=== PATIENT | female | born 1970 | race Caucasian/White ===

== ENCOUNTER 2018-07-29 10:47 | Day surgery (SDC) | payer OTHER ==
[~2018-07-29] VITALS: Ht 162.6 cm; Wt 77.1 kg
--- NOTE | ~2018-07-29 | OR ---
[facility] [address], [place] [address] Draft DATE OF OPERATION: 07/29/2018 SURGEON: Ama Partida MD PREOPERATIVE DIAGNOSES: 1. Diarrhea. 2. Iron-deficiency anemia. POSTOPERATIVE DIAGNOSES: 1. Mild antral gastritis with gastric polyps. 2. Normal-appearing colon, a small hyperplastic polyp of sigmoid. PROCEDURES: 1. Esophagogastroduodenoscopy with biopsy. 2. Total colonoscopy to cecum with cold morcellation polypectomy x1 and biopsy of cecum and terminal ileum. ANESTHESIA: Intravenous sedation, fentanyl 150 mcg, Versed 5 mg total. INDICATION: This 48-year-old white woman is a patient of JANETH Treviño and has had complaints of diarrhea, though benefitted somewhat from Questran, but also concurrent iron deficiency anemia. Her last upper endoscopy was in 2010. At that time showed no Mcneal's epithelium or H pylori or ulceration. She is admitted at this time to undergo upper endoscopy and colonoscopy on the basis of her anemia. She understands the risks of bleeding, infection, and perforation, wished to proceed. FINDINGS: On upper endoscopy, she had a good flap valve. Esophagus appeared reasonably normal. There was mild antral gastritis and several gastric polyps probably benign. CLOtest was negative. On colonoscopy, the prep was good. Complete colonoscopy was undertaken of the cecum and intubation of the ileum was accomplished as well. There was a hyperplastic polyp of the sigmoid, but remaining colon was normal. Biopsies were taken of the ileum, cecum, and rectum as well to assess for occult colitis. DESCRIPTION OF PROCEDURE: The patient was brought to the endoscopy suite and placed in lateral decubitus position PATIENT NAME: PIA PEARSON OPERATIVE REPORT DATE OF : 74 REPORT #: [id number] PHYSICIAN: AMA PARTIDA MD PCP: HERNANDEZ [place] REPORT IS CONFIDENTIAL AND NOT TO BE RELEASED WITHOUT AUTHORIZATION [facility] [address], [place] [address] Draft after undergoing topical Hurricaine spray hypopharyngeal anesthesia. She was given intravenous sedation to the point of slurred speech and nystagmus. A bite block was placed. An Olympus video upper endoscope was passed in the hypopharynx. The vocal cords were visualized as normal. Scope was advanced to the esophagus and throughout its length, it appeared normal. The scope was advanced to the stomach was insufflated with air. Rugal folds were normal. Antrum had mild inflammatory change, but no sign of ulceration proper. The pylorus was normal. Scope was passed through into the duodenum. The duodenum appeared to be normal as well. The scope was withdrawn to the antrum. A biopsy was then taken of the antrum on the basis of mild gastritis. CLOtest biopsies were taken as well. Gastric polyps were noted of the stomach and these were excised. Not all were removed of course only promotional representative polyps excised. Retroflexed view showed a good flap valve. There was no sign of hiatal hernia or proximal gastric pathology. The scope was withdrawn to the distal esophagus, which may have had mild inflammatory change, but not much and certainly no Mcneal's epithelium, stricture neoplasm or ulceration. Biopsies were obtained there as well. The scope was then withdrawn removed and plans made for colonoscopy. The table was rotated and additional sedation given. Digital rectal examination was found to be normal. The Olympus video colonoscope was passed in the rectum and manipulated throughout the colon ultimately intubating the cecum itself. The ileocecal valve appeared normal. Scope was able to pass into without problem showing normal ileal mucosa. The scope was passed as far into the ileum as possible. There was no sign of neoplasm, ulceration, stricture, or other problem. Biopsies were obtained to assess for Crohn's nevertheless. Scope was withdrawn and biopsy was then taken of the cecum, although it appeared normal as well. The appendiceal orifice was normal. Scope was withdrawn from that point. Careful inspection throughout upon withdrawal of scope showed no sign of abnormality into the sigmoid where small hyperplastic polyp was noted, this was excised with cold morcellation technique. The scope was then removed. The patient was taken to recovery room in good condition. CONCLUDING DIAGNOSIS: Hyperplastic polyp of sigmoid, not accounting for diarrhea or anemia. Normal appearing ileum and colon. Otherwise, no sign of inflammatory disease. Upper endoscopy confirming mild antral gastritis and small polyps. PLAN: I have recommended Questran 4 g powder q.i.d. We will review her pathology report to assess for occult colitis and see her back in followup. PATIENT NAME: PIA PEARSON OPERATIVE REPORT DATE OF : 74 REPORT #: [id number] PHYSICIAN: AMA PARTIDA MD PCP: HERNANDEZ [place] REPORT IS CONFIDENTIAL AND NOT TO BE RELEASED WITHOUT AUTHORIZATION [address] [address] Draft MD KRISTIAN Paez/GREG /[id number] cc: JANETH Treviño Copies: HERNANDEZ [place] ~ PATIENT NAME: PIA PEARSON OPERATIVE REPORT DATE OF : 74 REPORT #: [id number] PHYSICIAN: AMA PARTIDA MD PCP: HERNANDEZ [place] REPORT IS CONFIDENTIAL AND NOT TO BE RELEASED WITHOUT AUTHORIZATION
[~2018-07-29 10:47] MED LIST: ACTIVATED CHARCOAL PO; CALCIUM500 M1 PO; IRON18 MG PO; LISINOPRIL-HCT1 EAC2 PO; QUESTRAN PACKET4 GM PO; TOPROL XL50 MG PO; VITAMIN B122500 MCG PO; VITAMIN D32400 UNIT/ MISC
--- NOTE | 2018-07-29 12:53 | NUR ---
07/29/18 Jj3 Mary Jo 3520-PATIENT ARRIVED TO PACU ON 3L NC WEANED TO 2L NC O2 SAT 100% PATIENT AWAKE DROWSY DENIES PAIN OR NAUSEA. ABDOMEN SOFT AND ROUND ENCOURAGED TO PASS FLATUS. IVF INFUSING. RR EVEN.
== END 2018-07-29 13:30 | disposition home or self-care (01) ==
LOC: DS 10:47 → OPS 10:47 → DS 12:00 → OPS 12:00
PROVIDERS: Surgery
PROC: 0DB68ZX Excision of Stomach, Via Natural or Artificial Opening Endoscopic, Diagnostic (ICD-10-PCS; 2018-07-29)
PROC: 0DB18ZX Excision of Upper Esophagus, Via Natural or Artificial Opening Endoscopic, Diagnostic (ICD-10-PCS; 2018-07-29)
PROC: 0DBH8ZZ Excision of Cecum, Via Natural or Artificial Opening Endoscopic (ICD-10-PCS; 2018-07-29)
PROC: 0DBE8ZZ Excision of Large Intestine, Via Natural or Artificial Opening Endoscopic (ICD-10-PCS; 2018-07-29)
PROC: 0DBP8ZZ Excision of Rectum, Via Natural or Artificial Opening Endoscopic (ICD-10-PCS; 2018-07-29)
PROC: 0DBB8ZZ Excision of Ileum, Via Natural or Artificial Opening Endoscopic (ICD-10-PCS; 2018-07-29)
PROC: 0DB98ZX Excision of Duodenum, Via Natural or Artificial Opening Endoscopic, Diagnostic (ICD-10-PCS; principal; 2018-07-29 12:00)
PROC: 0DB78ZX Excision of Stomach, Pylorus, Via Natural or Artificial Opening Endoscopic, Diagnostic (ICD-10-PCS; 2018-07-29 12:00)
DX: K63.5 Polyp of colon (principal); K31.9 Disease of stomach and duodenum, unspecified; K21.0 Gastro-esophageal reflux disease with esophagitis; K31.7 Polyp of stomach and duodenum; K29.70 Gastritis, unspecified, without bleeding; D50.9 Iron deficiency anemia, unspecified; I10 Essential (primary) hypertension; K52.9 Noninfective gastroenteritis and colitis, unspecified; Z98.890 Other specified postprocedural states
CPT/HCPCS: 99153; G0500; J2250; J3010; J7120

== ENCOUNTER 2022-06-04 11:47 | Day surgery (SDC) | payer OTHER ==
[~2022-06-04] VITALS: Ht 162.6 cm; Wt 82.0 kg
--- NOTE | 2022-06-04 13:32 | NUR ---
06/04/22 1332 Emely Workman 1326 PT ARRIVED IN PACU WIDE AWAKE TALKING TO STAFF. NO C/O'S.
--- NOTE | 2022-06-05 08:08 | OR ---
[facility] [address] [place], [place] [address] Signed DATE OF OPERATION: 06/04/2022 SURGEON: Ama Partida MD PREOPERATIVE DIAGNOSES: 1. Clinical gastroesophageal reflux symptoms. 2. History of upper endoscopy in 2018 without hiatal hernia. POSTOPERATIVE DIAGNOSIS: Duodenitis and distal esophagitis, no evidence of hiatal hernia. PROCEDURE: Esophagogastroduodenoscopy with biopsy. ANESTHESIA: Intravenous sedation, fentanyl 100 mcg and Versed 4 mg. INDICATIONS: This 52-year-old white woman is a patient of [facility] and known to me from the past. She has complaints of reflux type symptoms including epigastric pain. She does not have spontaneous regurgitation. She underwent upper endoscopy by me in 2018, which did not show hiatal hernia. She had been treated with empirically with Prilosec, which was beneficial to her, but discontinued on the basis of fears of complications from it. She has no associated dysphagia currently. She is admitted at this time to undergo upper endoscopy to better characterize her problem, understand the risks of bleeding, infection, and perforation. FINDINGS: There was distal esophagitis to be sure. There was no sign of Mcneal's epithelium or stricture. There was no hiatal hernia. The stomach itself appeared normal. There was duodenal inflammation, however. CLOtest was negative 15 minutes post procedure. DESCRIPTION OF PROCEDURE: The patient was brought to the endoscopy suite and placed in lateral decubitus position after undergoing topical lidocaine, heparin per anesthesia. Intravenous sedation was induced with fentanyl and Versed to the point of slurred speech and nystagmus with full cardiopulmonary monitoring. A bite block was placed. An Olympus video upper endoscope was passed into the hypopharynx. The vocal cords Electronically Signed By: AMA PARTIDA MD 06/05/22 0808 PATIENT NAME: PIA PEARSON OPERATIVE REPORT DATE OF : 74 REPORT #: [id number] PHYSICIAN: AMA PARTIDA MD PCP: HERNANDEZ [place] REPORT IS CONFIDENTIAL AND NOT TO BE RELEASED WITHOUT AUTHORIZATION [facility] [address] [place], [place] [address] Signed appeared normal. Scope was advanced to the esophagus without problem throughout its length was normal except in the distal portion where there was obvious inflammatory change. The scope was advanced to the stomach, which was insufflated with air. Rugal folds were normal as was the pylorus. The scope was passed through the pylorus into the duodenum, which appeared to have chronic inflammation. There was no sign of ulcer. Biopsies were obtained. The scope was withdrawn and biopsies then taken of the antrum for both SOCORRO and pathologic testing. Retroflexed view showed a good flap valve, certainly no evidence of hiatal hernia. The scope was straightened and withdrawn and biopsies taken of the distal esophagus, which did have inflammation. Further withdrawal of the midesophagus allowing for biopsy there as well though it appeared normal. Scope was removed. The patient was taken to the recovery room in good condition. CONCLUDING DIAGNOSIS: Duodenitis and distal esophagitis, no evidence of hiatal hernia. PLAN: We will re-initiate Prilosec 20 mg p.o. daily. We will reassure the patient regarding the safety of this approach; and made analysis of hazard of PPI medication chronically were reviewed in the Kateryna Nic bulletin window edition 2020, which is reassuring. MD curtis Paez [facility] KRISTIAN/GREG /[id number] Copies: ~ Electronically Signed By: AMA PARTIDA MD 06/05/22 0808 PATIENT NAME: PIA PEARSON OPERATIVE REPORT DATE OF : 74 REPORT #: [id number] PHYSICIAN: AMA PARTIDA MD PCP: HERNANDEZ [place] REPORT IS CONFIDENTIAL AND NOT TO BE RELEASED WITHOUT AUTHORIZATION
--- NOTE | 2022-06-05 14:11 | PATH ---
[facility] [address] [place], [place] [address] Signed SPECIMEN(S): A DUODENAL BIOPSY SPECIMEN(S): B ANTRUM/PYLORUS BIOPSY SPECIMEN(S): C LOWER ESOPHAGUS BIOPSY SPECIMEN(S): D MID ESOPHAGUS BIOPSY SPECIMEN SOURCE: A. DUODENAL BIOPSY B. ANTRUM/PYLORUS BIOPSY C. LOWER ESOPHAGUS BIOPSY D. MID ESOPHAGUS BIOPSY CLINICAL HISTORY: EGD. Reflux with esophagitis, history of gastric polyp. FINAL PATHOLOGIC DIAGNOSIS: A. Duodenal biopsy: - Benign duodenal mucosa with preserved villous architecture, negative for significantly increased epithelial lymphocytes. B. Antrum/pylorus biopsy: - Antral-type mucosa with slight reactive features and minimal chronic inflammation. - Negative for evidence of Helicobacter organisms on routine HE-stained sections. C. Lower esophagus biopsy: - Benign esophageal mucosa with reactive features, negative for significantly increased epithelial eosinophils. - Negative for glandular mucosa. D. Mid esophagus biopsy: - Benign esophageal mucosa, negative for increased epithelial eosinophils. JVR:em:C2NR MICROSCOPIC EXAMINATION: Histologic sections of all submitted blocks are examined by light microscopy. These findings, together with the gross examination, support the pathologic diagnosis. GROSS DESCRIPTION: Four specimens are received in four containers labeled with "JM." A. The specimen, labeled "JM, 1," and designated on the requisition "duodenum biopsy," is received in formalin and consists of one fragment of pink-lowe tissue (0.4 cm in greatest dimension). The PATIENT NAME: LILIPIARENEE ESCALERA PATHOLOGY DATE OF : 74 REPORT #: [id number] PHYSICIAN: GUILLERMINA MONTOYA PCP: HERNANDEZ [place] REPORT IS CONFIDENTIAL AND NOT TO BE RELEASED WITHOUT AUTHORIZATION [facility] [address] [place], [place] [address] Signed specimen is submitted entirely in cassette (A1). B. The specimen, labeled "JM, 2," and designated on the requisition "antrum/pylorus biopsy," is received in formalin and consists of two fragments of pink-lowe tissue (0.4-0.5 cm in greatest dimension). The specimen is submitted entirely in cassette (B1). C. The specimen, labeled "JM, 3," and designated on the requisition "lower esophagus biopsy," is received in formalin and consists of three fragments of white-lowe tissue (0.2-0.3 cm in greatest dimension). The specimen is submitted entirely in cassette (C1). D. The specimen, labeled "JM, 4," and designated on the requisition "middle esophagus biopsy," is received in formalin and consists of two fragments of white-lowe tissue (0.3 and 0.4 cm in greatest dimension). The specimen is submitted entirely in cassette (D1). AC (under the direct supervision of a pathologist) The Gross Description was prepared using a voice recognition system. The report was reviewed for accuracy; however, sound-alike word errors, addition and/or deletions may occur. If there is any question about this report, please contact Client Services. PERFORMING LABORATORY: The technical component was performed by [facility], [address] [place] [id number] (CLIA# [id number]). The professional interpretation was performed by [facility], [facility], [address] [place] [address] (CLIA#: [id number]). Diagnostician: Yariel Luna MD Pathologist Electronically Signed 06/05/2022 Copies: ~ PATIENT NAME: PIA PEARSON PATHOLOGY DATE OF : 74 REPORT #: [id number] PHYSICIAN: GUILLERMINA PATHOLOGY PCP: HERNANDEZ [place] REPORT IS CONFIDENTIAL AND NOT TO BE RELEASED WITHOUT AUTHORIZATION
== END 2022-06-04 14:05 | disposition home or self-care (01) ==
LOC: DS 11:47 → OPS 11:47 → DS 12:00 → OPS 13:00 → DS 13:00 → OPS 14:05 → DS 07-09 14:00
PROVIDERS: ATTEND Surgery
PROC: 0DB68ZX Excision of Stomach, Via Natural or Artificial Opening Endoscopic, Diagnostic (ICD-10-PCS; 2022-06-04)
PROC: 0DB58ZX Excision of Esophagus, Via Natural or Artificial Opening Endoscopic, Diagnostic (ICD-10-PCS; principal; 2022-06-04 13:00)
DX: K29.50 Unspecified chronic gastritis without bleeding (principal); K29.80 Duodenitis without bleeding; K21.00 Gastro-esophageal reflux disease with esophagitis, without bleeding; I10 Essential (primary) hypertension; Z90.49 Acquired absence of other specified parts of digestive tract
CPT/HCPCS: 84703; J2250; J3010; J7121

== ENCOUNTER 2025-02-09 09:55 | Day surgery (SDC) | payer OTHER ==
[~2025-02-09] VITALS: Ht 162.6 cm; Wt 84.1 kg
[~2025-02-09 09:55] MED LIST changes: +IBLOOD GLUCOSE TEST STRIP 1 EA TEST VI PRN; +LACTATED RINGER'S 1,000 ML IV SCH; +LIDOCAINE HCL 1% 5 ML SDV INJ ONE; +LIDOCAINE HCL 4% 50 ML BTL TOP SCH; +MIDAZOLAM HCL 5 MG/5 ML VIAL IV PRN; +OMEPRAZOLE20 MG PO; +fentaNYL citrate 100 MCG/2 ML VIAL IV PRN
[2025-02-09 10:13] VITALS: BP 163/92
[2025-02-09] MEDS ORDERED: fentaNYL citrate 100 MCG/2 ML VIAL ONE (11:28)
[2025-02-09] MEDS ORDERED: MIDAZOLAM HCL 5 MG/5 ML VIAL ONE (11:28)
--- NOTE | 2025-02-09 12:11 | NUR ---
02/09/25 1211 Stephanie Hyde 1207: PATIENT'S OXYGEN SATURATION REMAINS 100% ON 3L VIA NC. OXYGEN IS DISCONTINUED AT THIS TIME.
[2025-02-09 12:31] VITALS: BP 131/86
--- NOTE | 2025-02-09 14:16 | OR ---
[facility] [address] [place], [place] [address] Signed DATE OF OPERATION: 02/09/2025 SURGEON: Ama Partida MD PREOPERATIVE DIAGNOSES: 1. Gastroesophageal reflux disease. 2. History of dysphagia. POSTOPERATIVE DIAGNOSES: Normal-appearing flap valve; normal esophagus, stomach and duodenum. PROCEDURE: Esophagogastroduodenoscopy with biopsy. ANESTHESIA: Intravenous sedation; fentanyl 100 mcg and Versed 3 mg. INDICATION: This 54-year-old white woman is a patient of Angelo CARVER at [place], [place]. She has additionally seen WEN Perry in the past. She does have history of gastroesophageal reflux for which she takes PPI medications. She has had occasional dysphagia, not severe in recent times. She is admitted to undergo upper endoscopy to better characterize the problem, assess for Mcneal epithelium, stricture, and so forth. She understands the risk of bleeding, infection, and perforation related to upper endoscopy and wished to proceed. FINDINGS: Esophagus, stomach, and duodenum were normal. The flap valve was quite good as well. CLOtest was negative. There was no sign of ulceration or stricture. She had no Mcneal epithelium. DESCRIPTION OF PROCEDURE: The patient was brought to the endoscopy suite and placed in the lateral decubitus position after undergoing lidocaine hypopharyngeal anesthesia. A bite block was placed and she was given intravenous sedation to the point of slurred speech and nystagmus with full cardiopulmonary monitoring. An Olympus video upper endoscope was passed in the hypopharynx. The vocal cords appeared entirely normal. Scope was easily advanced to the esophagus, throughout its length it appeared normal. Scope was advanced to the stomach which was insufflated with air. There was no sign of bile or other abnormality. Rugal folds were normal as was the antrum. The pylorus was normal. Scope was passed Electronically Signed By: AMA PARTIDA MD 02/09/25 1416 PATIENT NAME: PIA PEARSON OPERATIVE REPORT DATE OF : 74 REPORT #: [id number] PHYSICIAN: AMA PARTIDA MD PCP: ANGELO LAL NP REPORT IS CONFIDENTIAL AND NOT TO BE RELEASED WITHOUT AUTHORIZATION [facility] [address] [place], [place] [address] Signed through it and through the duodenum. Duodenum was normal. Biopsies were obtained to assess for celiac disease. The scope was withdrawn and biopsy was then taken for both SOCORRO and pathologic testing. Retroflexed view showed a surprisingly good flap valve. There is certainly no sign of hiatal hernia. The scope was straightened and withdrawn and biopsy was then taken of the distal esophagus, though it appeared normal and without sign of Mcneal's epithelium, stricture, neoplasm or varices. The midesophagus was biopsied as well. Further withdrawal showed no other abnormality. The patient was taken to the recovery room in good condition. CONCLUDING DIAGNOSIS: Normal upper endoscopy. PLAN: Recommend continued use of PPI medication for symptom control for clinical reflux symptoms. She will return to see us in the office in one year, sooner if situation should warrant. She will return to the ongoing care of Angelo Lal as well. MD KRISTIAN Paez/GREG /[id number] cc: Angelo Lal. [facility] Copies: ~ Electronically Signed By: AMA PARTIDA MD 02/09/25 1416 PATIENT NAME: PIA PEARSON OPERATIVE REPORT DATE OF : 74 REPORT #: [id number] PHYSICIAN: AMA PARTIDA MD PCP: ANGELO LAL NP REPORT IS CONFIDENTIAL AND NOT TO BE RELEASED WITHOUT AUTHORIZATION
--- NOTE | 2025-02-12 12:57 | PATH ---
[facility] [address] [place], [place] [address] Signed SPECIMEN(S): A DUODENAL BIOPSY SPECIMEN(S): B ANTRUM BIOPSY SPECIMEN(S): C LOWER ESOPHAGUS BIOPSY SPECIMEN(S): D MIDDLE ESOPHAGUS BIOPSY SPECIMEN SOURCE: A. DUODENAL BIOPSY B. ANTRUM BIOPSY C. LOWER ESOPHAGUS BIOPSY D. MIDDLE ESOPHAGUS BIOPSY CLINICAL HISTORY: GERD, chronic diarrhea, normal in appearance FINAL PATHOLOGIC DIAGNOSIS: A. Duodenal biopsy: - Duodenal mucosa with preserved villous architecture, negative for atypical epithelial features or increased epithelial lymphocytes. B. Antrum biopsy: - Gastric mucosa with diffuse mild chronic gastritis. - A Helicobacter pylori immunostain is negative for organisms. C. Lower esophagus biopsy: - Benign esophageal epithelium, negative for increased epithelial eosinophils. - Negative for glandular mucosa. D. Mid esophagus biopsy: - Benign esophageal epithelium, negative for increased epithelial eosinophils. - Scant glandular epithelium, negative for specialized intestinal metaplasia or dysplasia. JVR:smn MICROSCOPIC EXAMINATION: Histologic sections of all submitted blocks are examined by light microscopy. These findings, together with the gross examination, support the pathologic diagnosis. A Helicobacter pylori immunostain is performed with appropriate positive and negative controls on block B1 and is negative for organisms. JVR:smn GROSS DESCRIPTION: A. The specimen, labeled and designated "Jacobo duodenal biopsy," is received in formalin and consists of two lowe soft tissue fragments, ranging from 0.2-0.4 PATIENT NAME: PIA PEARSON PATHOLOGY DATE OF : 74 REPORT #: [id number] PHYSICIAN: GUILLERMINA PATHOLOGY PCP: QUIANA LAL NP REPORT IS CONFIDENTIAL AND NOT TO BE RELEASED WITHOUT AUTHORIZATION [facility] [address] [place], [place] [address] Signed cm. Entirely submitted in (A1). B. The specimen, labeled and designated "Jacobo, antrum biopsy," is received in formalin and consists of two lowe soft tissue fragments, ranging from 0.3-0.4 cm. Entirely submitted in (B1). C. The specimen, labeled and designated "Jacobo, lower esophagus biopsy," is received in formalin and consists of four lowe soft tissue fragments, ranging from 0.2-0.5 cm. Entirely submitted in (C1). D. The specimen, labeled and designated "Jacobo, middle esophagus biopsy," is received in formalin and consists of two lowe soft tissue fragments, ranging from 0.1-0.4 cm. Entirely submitted in (D1). VB (under the direct supervision of a pathologist) The Gross Description was prepared using a voice recognition system. The report was reviewed for accuracy; however, sound-alike word errors, addition and/or deletions may occur. If there is any question about this report, please contact Client Services. ADDITIONAL NOTES: Immunohistochemical and/or in situ hybridization studies were performed on this case with the appropriate positive controls that react as expected. This test was developed and its performance characteristics determined by [employer]. It has not been cleared or approved by the U.S. Food and Drug Administration. The FDA has determined that such clearance or approval is not necessary. This test is used for clinical purposes. It should not be regarded as investigational or for research. [employer] is certified under the Clinical Laboratory Improvement Amendments of 1988 (CLIA) as qualified to perform high complexity clinical laboratory testing. This assay has not been validated for specimens that have been decalcified. PERFORMING LABORATORY: The technical component was performed by [facility], [facility] [place] [address] (CLIA# [id number]). Professional interpretation was performed by [facility] - [facility], [address] [place], [place] [address]e, [place] [address] (CLIA#: [id number]). Diagnostician: Yariel Luna MD Pathologist Electronically Signed 02/12/2025 PATIENT NAME: PIA PEARSON PATHOLOGY DATE OF : 74 REPORT #: [id number] PHYSICIAN: GUILLERMINA PATHOLOGY PCP: QUIANA LAL NP REPORT IS CONFIDENTIAL AND NOT TO BE RELEASED WITHOUT AUTHORIZATION [facility] [address] [facility] [place] [place] [address] Signed Copies: ~ PATIENT NAME: PIA PEARSON PATHOLOGY DATE OF : 74 REPORT #: [id number] PHYSICIAN: GUILLERMINA PATHOLOGY PCP: QUIANA LAL NP REPORT IS CONFIDENTIAL AND NOT TO BE RELEASED WITHOUT AUTHORIZATION
== END 2025-02-09 12:38 | disposition home or self-care (01) ==
LOC: DS 09:55
PROVIDERS: ATTEND Surgery
PROC: 0DB68ZX Excision of Stomach, Via Natural or Artificial Opening Endoscopic, Diagnostic (ICD-10-PCS; 2025-02-09)
PROC: 0DB28ZX Excision of Middle Esophagus, Via Natural or Artificial Opening Endoscopic, Diagnostic (ICD-10-PCS; 2025-02-09)
PROC: 0DB38ZX Excision of Lower Esophagus, Via Natural or Artificial Opening Endoscopic, Diagnostic (ICD-10-PCS; 2025-02-09)
PROC: 0DB98ZX Excision of Duodenum, Via Natural or Artificial Opening Endoscopic, Diagnostic (ICD-10-PCS; principal; 2025-02-09 11:15)
DX: K29.50 Unspecified chronic gastritis without bleeding (principal); K21.9 Gastro-esophageal reflux disease without esophagitis; K52.9 Noninfective gastroenteritis and colitis, unspecified; I10 Essential (primary) hypertension; Z90.49 Acquired absence of other specified parts of digestive tract; Z79.899 Other long term (current) drug therapy
CPT/HCPCS: G0500; J2250; J3010; J7121